=== PATIENT | female | born 1945 | race African-American/Black ===

== ENCOUNTER 2018-02-12 13:17 | Inpatient (IN) | payer OTHER, MEDICARE ==
--- NOTE | 2018-02-12 14:56 | ER Document Report ---
ED Medical Screen (RME) - General Chief Complaint: Lower Abdominal Pain Stated Complaint: VAGINAL BLEEDING Time Seen by Provider: 02/12/18 14:55 Mode of Arrival: Ambulatory Information source: Patient Notes: three days of rectal and vaginal bleeding. no blood thinners. TRAVEL OUTSIDE OF THE [place] IN LAST 30 DAYS: No - Related Data Allergies/Adverse Reactions: shellfish derived Allergy (Verified 02/12/18 13:24) Past Medical History - Social History Chew tobacco use (# tins/day): No Frequency of alcohol use: None Drug Abuse: None Pulmonary Medical History: Reports: Hx Asthma Renal/ Medical History: Denies: Hx Peritoneal Dialysis Musculoskeltal Medical History: Reports Hx Arthritis
--- NOTE | 2018-02-12 16:31 | ER Document Report ---
ED GI/ - General Mode of Arrival: Ambulatory Information source: Patient TRAVEL OUTSIDE OF THE [place] IN LAST 30 DAYS: No <ABIMBOLA VARGAS - Last Filed: 02/12/18 17:50> <LICHA HUA - Last Filed: 02/15/18 09:29> - General Chief Complaint: Lower Abdominal Pain Stated Complaint: VAGINAL BLEEDING Time Seen by Provider: 02/12/18 14:55 Notes: Patient is a morbidly obese 72-year-old female who presents to the emergency department today with complaints of bleeding "out of her rectum or her vagina" for the last three days. Patient states that she first noticed this when having a bowel movement three days ago. Patient states she has not noticed this blood when urinating. Patient describes this blood as dark red in color. Patient mentions associated abdominal pain and lower back pain. Patient states she has not been taking her "fluid pills because she was afraid she might not be able to keep them down" however the patient has not vomited. Patient has never had a colonoscopy in the past, states her PCP is in [place] where she is visiting from. Patient denies any recent weight gain, weight loss, cough , or congestion. (ABIMBOLA VARGAS) - Related Data Allergies/Adverse Reactions: shellfish derived Allergy (Severe, Verified 02/12/18 20:16) Shortness of Breath Past Medical History - General Information source: Patient - Social History Smoking Status: Unknown if Ever Smoked Cigarette use (# per day): No Chew tobacco use (# tins/day): No Frequency of alcohol use: None Drug Abuse: None Lives with: Family Family History: Reviewed & Not Pertinent Patient has suicidal ideation: No Patient has homicidal ideation: No Pulmonary Medical History: Reports: Hx Asthma Musculoskeltal Medical History: Reports Hx Arthritis Surgical Hx: Negative <ABIMBOLA VARGAS - Last Filed: 02/12/18 17:50> Review of Systems - Review of Systems Constitutional: denies: Weight gain, Weight loss EENT: denies: Nose congestion Cardiovascular: No symptoms reported Respiratory: denies: Cough Gastrointestinal: See HPI, Abdominal pain, Rectal bleeding Genitourinary: No symptoms reported Female Genitourinary: No symptoms reported Musculoskeletal: See HPI, Back pain Skin: No symptoms reported Hematologic/Lymphatic: No symptoms reported Neurological/Psychological: No symptoms reported -: Yes All other systems reviewed and negative <ABIMBOLA VARGAS - Last Filed: 02/12/18 17:50> Physical Exam <ABIMBOLA VARGAS - Last Filed: 02/12/18 17:50> <LICHA HUA - Last Filed: 02/15/18 09:29> - Vital signs Vitals: Temp Pulse Resp BP Pulse Ox 98.1 F 90 16 147/64 H 98 02/12/18 13:29 02/12/18 13:29 02/12/18 13:29 02/12/18 13:29 02/12/18 13:29 - Notes Notes: Physical Exam: General: Alert, morbidly obese. HEENT: Normocephalic. Atraumatic. PERRL. Extraocular movements intact. Oropharynx clear. Pale conjunctiva bilaterally. Neck: Supple. Non-tender. Respiratory: No respiratory distress. Clear and equal breath sounds bilaterally. Cardiovascular: Regular rate and rhythm. Abdominal: Normal Inspection. Non-tender. No distension. Normal Bowel Sounds. Rectal: No anal fissures. Gross blood on digital rectal exam. Large amounts of blood with clots in bedside commode. Back: Non-tender. No deformity or step off. Extremities: Moves all four extremities. Upper extremities: Normal inspection. Normal ROM. Lower extremities: See skin exam. No edema. Normal ROM. Neurological: Normal cognition. AAOx4. Normal speech. Psychological: Normal affect. Normal Mood. Skin: Stasis dermatitis to bilateral lower extremities. Warm. Dry. Normal color. (ABIMBOLA VARGAS) Course - Laboratory Result Diagrams: 02/12/18 16:49 02/12/18 16:49 <ABIMBOLA VARGAS - Last Filed: 02/12/18 17:50> - Laboratory Result Diagrams: 02/15/18 08:21 02/15/18 05:29 <LICHA HUA - Last Filed: 02/15/18 09:29> - Re-evaluation Re-evalutation: 02/12/18 19:14 Patient will be admitted for GI bleeding. Patient's vitals are stable and Dr. Avery is consulted. He will scope her tomorrow will be admitted to hospitalist for medical management (LICHA HUA) - Vital Signs Vital signs: Temp Pulse Resp BP Pulse Ox 99.2 F 88 18 103/44 L 98 02/15/18 09:26 02/15/18 09:26 02/15/18 09:26 02/15/18 09:26 02/15/18 09:26 - Laboratory Laboratory results interpreted by me: 02/12/18 02/12/18 02/12/18 16:49 16:49 16:49 WBC 10.6 H RBC 3.36 L Hgb 9.6 L Hct 29.9 L MCHC 31.9 L RDW 15.1 H Plt Count 148 L Chloride 109 H Anion Gap 4 L Albumin 3.2 L Urine Protein Urine Ketones Urine Blood Crossmatch See Detail 02/12/18 17:16 WBC RBC Hgb Hct MCHC RDW Plt Count Chloride Anion Gap Albumin Urine Protein 30 H Urine Ketones TRACE H Urine Blood LARGE H Crossmatch Discharge <ABIMBOLA VARGAS - Last Filed: 02/12/18 17:50> - Discharge Admitting Provider: [facility] Admitted: Telemetry <LICHA HUA - Last Filed: 02/15/18 09:29> - Discharge Clinical Impression: Rectal bleeding Condition: Good Disposition: ADMITTED INPATIENT Scribe Attestation: 02/15/18 09:29 I personally performed the services described in the documentation, reviewed and edited the documentation which was dictated to the scribe in my presence, and it accurately records my words and actions. (LICHA HUA) Scribe Documentation - Scribe Written by Doryibe:: James Baltazar, 02/12/2018 1801 acting as scribe for :: Kishor <ABIMBOLA VARGAS - Last Filed: 02/12/18 17:50>
[2018-02-12] MEDS ORDERED: NORMAL SALINE 1000 ML 500 ML IV ONE (16:37)
[2018-02-12 17:07] LABS: ABSOLUTE BASOPHILS # (AUTO) 0.1 10^3/uL (0.0-0.2); ABSOLUTE EOSINOPHILS # (AUTO) 0.5 10^3/uL (0.0-0.6); ABSOLUTE LYMPHOCYTES (AUTO) 2.7 10^3/uL (0.5-4.7); ABSOLUTE MONOCYTES (AUTO) 0.7 10^3/uL (0.1-1.4); ABSOLUTE NEUT (AUTO) 6.6 10^3/uL (1.7-8.2); BASOPHILS % (AUTO) 0.8 % (0-2); EOSINOPHILS % (AUTO) 5.1 % (0-6); HEMATOCRIT 29.9 % (36.0-47.0); HEMOGLOBIN 9.6 g/dL (12.0-15.5); LYMPHOCYTES % (AUTO) 25.4 % (13-45); MEAN CORPUSCULAR HEMOGLOBIN 28.4 pg (27.0-33.4); MEAN CORPUSCULAR HGB CONC 31.9 g/dL (32.0-36.0); MEAN CORPUSCULAR VOLUME 89 fl (80-97); MONOCYTES % (AUTO) 6.6 % (3-13); PLATELET COUNT 148 10^3/uL (150-450); RED BLOOD COUNT 3.36 10^6/uL (3.72-5.28); RED CELL DISTRIBUTION WIDTH 15.1 % (11.5-14.0); SEGMENTED NEUTROPHILS % (AUTO) 62.1 % (42-78); TOTAL CELLS COUNTED % (AUTO) 100 %; WHITE BLOOD COUNT 10.6 10^3/uL (4.0-10.5)
[2018-02-12 17:27] LABS: ALANINE AMINOTRANSFERASE 21 U/L (9-52); ALBUMIN 3.2 g/dL (3.5-5.0); ALKALINE PHOSPHATASE 48 U/L (38-126); ASPARTATE AMINO TRANSFERASE 22 U/L (14-36); BILIRUBIN,DIRECT 0.4 mg/dL (0.0-0.4); BILIRUBIN,TOTAL 0.6 mg/dL (0.2-1.3); BLOOD UREA NITROGEN 16 mg/dL (7-20); CALCIUM 9.2 mg/dL (8.4-10.2); CARBON DIOXIDE 29 mmol/L (22-30); GLUCOSE 106 mg/dL (75-110); POTASSIUM 4.4 mmol/L (3.6-5.0); TOTAL PROTEIN 6.9 g/dL (6.3-8.2)
[2018-02-12 17:32] LABS: CHLORIDE 109 mmol/L (98-107); SODIUM 142.4 mmol/L (137-145)
[2018-02-12 17:33] LABS: ANION GAP 4 (5-19)
[2018-02-12 18:02] LABS: APPEARANCE,URINE SLIGHTLY-CLOUDY; BILIRUBIN,URINE NEGATIVE (NEGATIVE); COLOR,URINE YELLOW; GLUCOSE, URINE NEGATIVE (NEGATIVE); KETONES,URINE TRACE mg/dL (NEGATIVE); LEUKOCYTE ESTERASE,URINE NEGATIVE (NEGATIVE); NITRITE,URINE NEGATIVE (NEGATIVE); PROTEIN,URINE 30 mg/dL (NEGATIVE); URINE SPECIFIC GRAVITY 1.028; UROBILINOGEN,URINE NEGATIVE mg/dL (<2.0)
--- NOTE | 2018-02-12 18:42 | RADIOLOGY REPORT (SQ) ---
EXAM DESCRIPTION: CT ABD/PELVIS WITH IV ONLY COMPLETED DATE/TIME: 02/12/2018 6:24 pm REASON FOR STUDY: rectal bleeding 3x days COMPARISON: None. TECHNIQUE: CT scan of the abdomen and pelvis performed using helical scanning technique with dynamic intravenous contrast injection. No oral contrast. Images reviewed with lung, soft tissue, and bone windows. Reconstructed coronal and sagittal MPR images reviewed. Delayed images for evaluation of the urinary system also acquired. All images stored on PACS. All CT scanners at this facility use dose modulation, iterative reconstruction, and/or weight based d osing when appropriate to reduce radiation dose to as low as reasonably achievable (ALARA). [facility]: Dose Right [facility]: CareDose [facility]: Dose Right [facility]: Teradose 4D [facility]: Vericept CONTRAST TYPE AND DOSE: 79 mL Isovue 370 RENAL FUNCTION: Creatinine 0.65 RADIATION DOSE: CT Rad equipment meets quality standard of care and radiation dose reduction techniq ues were employed. CTDIvol: 21.1 mGy. DLP: 2045 mGy-cm.. LIMITATIONS: Study is limited due to the patient's body habitus FINDINGS: LOWER CHEST: No significant findings. No nodules or infiltrates. LIVER: Normal size. No masses. No dilated ducts. SPLEEN: Normal size. No focal lesions. PANCREAS: No masses. No significant calcifications. No adjacent inflammation or peripancreatic fluid collections. Pancreatic duct not dilated. GALLBLADDER: Status post cholecystectomy ADRENAL GLANDS: No significant masses or asymmetry. RIGHT KIDNEY AND URETER: No solid masses. No significant calcifications. No hydronephrosis or hyd roureter. LEFT KIDNEY AND URETER: No solid masses. No significant calcifications. No hydronephrosis or hydr oureter. AORTA AND VESSELS: No aneurysm. No dissection. Renal arteries, SMA, celiac without stenosis. RETROPERITONEUM: No retroperitoneal adenopathy, hemorrhage or masses. BOWEL AND PERITONEAL CAVITY: No masses or inflammatory changes. No free fluid or peritoneal masses. A few scattered diverticula are identified in the distal descending colon and sigmoid colon. APPENDIX: Not identified PELVIS: No mass. No free fluid. Normal bladder. There is some prominence of the uterus. Small amou nt of air is identified in at the level of the cervix which may be within the endocervical canal. ABDOMINAL WALL: No masses. No hernias. BONES: No significant or acute findings. OTHER: No other significant finding. IMPRESSION: NO SIGNIFICANT OR ACUTE FINDING IN THE ABDOMEN OR PELVIS ON CT SCAN WITH IV CONTRAST. TECHNICAL DOCUMENTATION: JOB ID: [id number] Quality ID # [id number]: Final reports with documentation of one or more dose reduction techniques (e.g., Au tomated exposure control, adjustment of the mA and/or kV according to patient size, use of iterative reconstruction technique) 2010 [employer]- All Rights Reserved Reading location - IP/workstation name: [email or web address]
[2018-02-12 19:05] LABS: INTERNATIONAL RATION (INR) 1.04; PROTHROMBIN TIME 14.3 SEC (11.4-15.4)
[2018-02-12 19:06] LABS: PARTIAL THROMBOPLASTIN TIME 32.1 SEC (23.5-35.8)
[2018-02-12] MEDS ORDERED: ALBUTEROL SULFATE 0.083% NEB 2.5 MG/3 ML AMPUL NEB PRN (19:21)
[2018-02-12] MEDS ORDERED: ACETAMINOPHEN 325 MG TABLET PO PRN (19:21)
[2018-02-12] MEDS ORDERED: PROMETHAZINE HCL INJ 25 MG/1 ML VIAL IV PRN (19:21)
[2018-02-12] MEDS ORDERED: FENTANYL CITRATE INJ/PF 100 MCG/2 ML AMPUL IV PRN (19:59)
[2018-02-12] MEDS ORDERED: PANTOPRAZOLE SODIUM 40 MG VIAL IV ONE (20:00)
[2018-02-12] MEDS ORDERED: PEG 3350/NA SULF,BICARB,CL/KCL 4000 ML PO ONE (20:30)
[2018-02-12] MEDS: NORMAL SALINE 1000 ML 1,000 ML IV PRN (20:31)
--- NOTE | 2018-02-12 20:31 | PDOC H&P ---
History of Present Illness Patient complains of: Melena 3 episodes today. History of Present Illness: BHARAT MATHEW is a 72 year old morbidly obese female with no medical history since she does not follow with the primary physician was admitted with above- mentioned complaints. The patient was not very forthcoming with information so some of the history was obtained from her daughter at bedside. She resides in [place]. Per her daughter, the patient mentioned to her that she had some bleeding when she had a bowel movement about 3 days ago. And around noon today, she had dark blood per rectum per her son. The patient herself was not sure if she had any bright red blood since she said that she did not look. She had 3 more episodes while in the ED with the last time being around 4:30 PM. It was melanic stool. The patient denied any chest pain, shortness of breath, abdominal pain or diarrhea but she said that she is constipated at times. She also felt nauseous but she did not vomit. She noticed that her urine output has been low today. She felt lightheaded when she was in CAT scan. The patient denied any fever but complained of chills and lower back pain. She is able to ambulate using a cane. She said that she took 2 Aleve nightly for the last 3 days for her arthritis pain. In the ED, her temperature was 98.1, heart rate 90, respiratory rate 16, blood pressure 147/64 with oxygen saturation of 98% on room air. Her hemoglobin was 9.6 and INR was 1.0. UA negative. An abdominal CAT scan was done which was unremarkable except for scattered diverticuli in the distal descending and sigmoid colon. Past Medical History Medical History: Other - According to the patient and based on previous records. Cardiac Medical History: Reports: Other - bilateral lymphadema. Pulmonary Medical History: Reports: Asthma Musculoskeltal Medical History: Reports: Arthritis Past Surgical History Past Surgical History: Reports: None Social History Lives with: Family Smoking Status: Never Smoker Frequency of Alcohol Use: None Hx Recreational Drug Use: No - Advance Directive Resuscitation Status: Full Code Family History Family History: Reviewed & Not Pertinent Parental Family History Reviewed: Yes - No cardiac disease or diabetes in the family per patient. Children Family History Reviewed: No Sibling(s) Family History Reviewed.: Yes Medication/Allergy Allergies/Adverse Reactions: shellfish derived Allergy (Severe, Verified 02/12/18 20:16) Shortness of Breath Review of Systems ROS unobtainable: Other - Pertinent positives and negatives as detailed in the HPI. Physical Exam Vital Signs: Temp Pulse Resp BP Pulse Ox 97.5 F 84 18 108/66 100 02/12/18 19:19 02/12/18 19:19 02/12/18 19:19 02/12/18 19:19 02/12/18 19:19 Intake & Output 02/11/18 02/12/18 02/13/18 06:59 06:59 06:59 Weight 135.4 kg General appearance: PRESENT: no acute distress, morbidly obese Head exam: PRESENT: atraumatic, normocephalic Eye exam: PRESENT: conjunctiva pink, PERRLA. ABSENT: scleral icterus Mouth exam: PRESENT: moist, neck supple Neck exam: PRESENT: full ROM. ABSENT: JVD Respiratory exam: PRESENT: decreased breath sounds. ABSENT: rales, rhonchi, wheezes Cardiovascular exam: PRESENT: RRR, +S1, +S2 Pulses: PRESENT: normal dorsalis pedis pul GI/Abdominal exam: PRESENT: normal bowel sounds, soft. ABSENT: distended, rebound, tenderness Rectal exam: PRESENT: deferred Extremities exam: ABSENT: pedal edema Musculoskeletal exam: PRESENT: other - unable to move lower extremities since heavy. Neurological exam: PRESENT: alert, altered, awake, motor sensory deficit - motor 2+/5 lower extremities since legs "heavy". Skin exam: PRESENT: dry, warm. ABSENT: erythema, rash Results Laboratory Results: 02/12/18 16:49 02/12/18 16:49 02/12/18 02/12/18 02/12/18 16:49 16:49 16:49 WBC 10.6 H RBC 3.36 L Hgb 9.6 L Hct 29.9 L MCV 89 MCH 28.4 MCHC 31.9 L RDW 15.1 H Plt Count 148 L Seg Neutrophils % 62.1 Lymphocytes % 25.4 Monocytes % 6.6 Eosinophils % 5.1 Basophils % 0.8 Absolute Neutrophils 6.6 Absolute Lymphocytes 2.7 Absolute Monocytes 0.7 Absolute Eosinophils 0.5 Absolute Basophils 0.1 Sodium 142.4 Potassium 4.4 Chloride 109 H Carbon Dioxide 29 Anion Gap 4 L BUN 16 Creatinine 0.65 Est GFR ( Amer) > 60 Est GFR (Non-Af Amer) > 60 Glucose 106 Calcium 9.2 Total Bilirubin 0.6 AST 22 ALT 21 Alkaline Phosphatase 48 Total Protein 6.9 Albumin 3.2 L Urine Color Urine Appearance Urine pH Ur Specific [place] Urine Protein Urine Glucose (UA) Urine Ketones Urine Blood Urine Nitrite Ur Leukocyte Esterase Urine WBC (Auto) Urine RBC (Auto) Blood Type AB POSITIVE Antibody Screen NEGATIVE 02/12/18 17:16 WBC RBC Hgb Hct MCV MCH MCHC RDW Plt Count Seg Neutrophils % Lymphocytes % Monocytes % Eosinophils % Basophils % Absolute Neutrophils Absolute Lymphocytes Absolute Monocytes Absolute Eosinophils Absolute Basophils Sodium Potassium Chloride Carbon Dioxide Anion Gap BUN Creatinine Est GFR ( Amer) Est GFR (Non-Af Amer) Glucose Calcium Total Bilirubin AST ALT Alkaline Phosphatase Total Protein Albumin Urine Color YELLOW Urine Appearance SLIGHTLY-CLOUDY Urine pH 5.0 Ur Specific [place] 1.028 Urine Protein 30 H Urine Glucose (UA) NEGATIVE Urine Ketones TRACE H Urine Blood LARGE H Urine Nitrite NEGATIVE Ur Leukocyte Esterase NEGATIVE Urine WBC (Auto) 8 Urine RBC (Auto) >182 Blood Type Antibody Screen EKG Comments: none. Impressions: Abdomen/Pelvis CT 02/12/18 16:36 IMPRESSION: NO SIGNIFICANT OR ACUTE FINDING IN THE ABDOMEN OR PELVIS ON CT SCAN WITH IV CONTRAST. Assessment & Plan - Diagnosis (1) GI bleed Qualifiers: GI bleed type/associated pathology: unspecified gastrointestinal hemorrhage type Qualified Code(s): K92.2 - Gastrointestinal hemorrhage, unspecified Is this a current diagnosis for this admission?: Yes Plan: Possibly upper versus lower GI bleed (the patient was not very clear whether she had any bright red blood per rectum). CAT scan abdomen/pelvis reviewed. We will keep n.p.o., IV fluids and start 40 mg IV Protonix twice a day. We will monitor H&H closely and transfuse as needed. Surgery was consulted by the ED physician for EGD and possible colonoscopy in a.m. - Time Time Spent: 50 to 70 Minutes Anticipated discharge: Home
--- NOTE | 2018-02-12 20:39 | CONSULTATION REPORT E ---
Consultation Report NAME: BHARAT MATHEW : 1945 AGE: 72Y DATE: 02/12/2018 ED17 A TO: CHAS CURRAN M.D. FROM: MORENA MORGAN M.D. Requesting Physician Patient is seen at the request of Emergency Department. CHIEF COMPLAINT: Rectal bleeding. HISTORY OF PRESENT ILLNESS: Patient is a 72-year-old female, poor historian, recently from [place], visiting [place], [place] while attending a wedding. She comes to the Emergency Department complaining of a 3-day history of rectal bleeding, recently thought to be coming from her vagina but confirmed to be her rectum. Blood was dark red. Patient denies a history of trauma, previous episodes. She has never had a colonoscopy. She was seen in the Emergency Department after being brought by ground rescue where she was hemodynamically stable. She had hemoglobin of 9.6. She underwent CT scan of the abdomen and pelvis where she was found to have evidence of diverticulosis only. The CT scan was performed with IV contrast only. Medicine was consulted and have advised admission with surgery consulting for endoscopic purposes. ALLERGIES: SHELLFISH. PAST MEDICAL HISTORY: Unknown; lower extremity edema, lymphedema, asthma, and arthritis. PAST SURGICAL HISTORY: Patient denies. REVIEW OF SYSTEMS: CONSTITUTIONAL: Patient denies. GASTROINTESTINAL: As per HPI. GENITOURINARY: Patient denies. MUSCULOSKELETAL: Lower extremity edema. SOCIAL HISTORY: Noncontributory. FAMILY HISTORY: Noncontributory. SUBSTANCE USE: The patient does not smoke. PHYSICAL EXAMINATION: Patient examined in the Emergency Department. She is in no acute distress. There is a strong stench in the room, a combination of a GI bleed and biological body smell. PSYCHIATRICALLY: Awake, alert and oriented x4. NEUROLOGIC: Grossly intact in the upper and lower extremities. HEENT: Poor dentition. LUNGS:CTA. HEART: Without murmur or gallop. ABDOMEN: Shows no peritoneal signs. No rigidity. No scars. No hernias. RECTAL: Exam performed by staff. Gross blood. No mass by report; rectal exam not repeated by surgeon. EXTREMITIES: Upper and lower extremities: No gross deformities. Lower extremities with evidence of +2 edema. LABORATORY: Profile shows a white blood cell count of 10,600; hemoglobin 9.6; platelets of 148. Electrolytes essentially within normal limits. IMPRESSION: 1. Acute GI bleed superimposed on chronic anemia; possibly related to chronic disease associated with thrombocytopenia. 2. Need for screening now diagnostic colonoscopy. 3. Obesity. 4. Hypertension. 5. Lymphedema, chronic. RECOMMENDATIONS: Patient needs admission, close monitoring, fluid support, kept n.p.o.; coagulant normal. Hemoglobin should be repeated in 12 hours; patient may require blood transfusion. Suggest starting bowel prep and preparing patient for both upper and lower endoscopy tomorrow pending patient's hemodynamic stability. TOTAL TIME: Thirty minutes. DICTATING PHYSICIAN: CHAS CURRAN M.D. [id number] PHY#: [id number] ID: [id number] JOB#: [id number] ACCT: [id number] cc:CHAS CURRAN M.D. > MTDD
[2018-02-12] MEDS ORDERED: FENTANYL CITRATE INJ/PF 100 MCG/2 ML AMPUL IV ONE (20:45)
[2018-02-12] MEDS ORDERED: INFLUENZA ADLT QUAD (36MOS+) 2017-18 VAC 0.5 ML SYR IM PRN (23:15)
[2018-02-13] MEDS: PANTOPRAZOLE SODIUM 40 MG VIAL IV SCH ×3 (00:03→22:02)
[2018-02-13] MEDS: NORMAL SALINE 1000 ML 1,000 ML IV PRN (00:04)
[2018-02-13 04:43] LABS: HEMATOCRIT 22.6 % (36.0-47.0); MEAN CORPUSCULAR HEMOGLOBIN 28.2 pg (27.0-33.4); MEAN CORPUSCULAR VOLUME 88 fl (80-97); PLATELET COUNT 106 10^3/uL (150-450); RED BLOOD COUNT 2.56 10^6/uL (3.72-5.28); RED CELL DISTRIBUTION WIDTH 14.3 % (11.5-14.0); WHITE BLOOD COUNT 10.1 10^3/uL (4.0-10.5)
[2018-02-13 04:50] LABS: HEMOGLOBIN 7.2 g/dL (12.0-15.5)
[2018-02-13 05:01] LABS: BLOOD UREA NITROGEN 14 mg/dL (7-20); CALCIUM 8.3 mg/dL (8.4-10.2); CARBON DIOXIDE 28 mmol/L (22-30); GLUCOSE 88 mg/dL (75-110)
[2018-02-13 05:23] LABS: ANION GAP 5 (5-19); CHLORIDE 111 mmol/L (98-107); POTASSIUM 3.9 mmol/L (3.6-5.0)
[2018-02-13] MEDS ORDERED: FUROSEMIDE INJ/PF 20 MG/2 ML SDV IV PRN (08:05)
[2018-02-13] MEDS ORDERED: NORMAL SALINE 250 ML IV PRN ×2 (08:05)
[2018-02-13] MEDS ORDERED: GLYCOPYRROLATE INJ 0.4 MG/2 ML VIAL ONE (08:48)
[2018-02-13] MEDS ORDERED: ONDANSETRON HCL INJ/PF 4 MG/2 ML SDV ONE (08:48)
[2018-02-13] MEDS ORDERED: NALOXONE HCL INJ/PF 0.4 MG/1 ML SDV ONE (08:48)
[2018-02-13] MEDS ORDERED: GLUCAGON,HUMAN RECOMB 1 MG INJ ONE (08:49)
[2018-02-13] MEDS ORDERED: FLUMAZENIL INJ 0.5 MG/5 ML VIAL ONE (08:49)
[2018-02-13] MEDS ORDERED: EPINEPHRINE INJ 1 MG/10 ML DISP.SYRIN ONE (08:49)
[2018-02-13] MEDS ORDERED: PANTOPRAZOLE SODIUM 40 MG VIAL IV SCH (10:00)
--- NOTE | 2018-02-13 11:43 | PDOC PROGRESS REPORT ---
Subjective Progress Note for:: 02/13/18 Subjective:: Had bowel movement mixed with stool and blood this morning. No abdominal pain. No shortness of breath. No lightheadedness. Reason For Visit: RECTAL BLEED Physical Exam Vital Signs: Temp Pulse Resp BP Pulse Ox 98.5 F 88 16 108/59 L 100 02/13/18 11:10 02/13/18 11:10 02/13/18 11:10 02/13/18 11:10 02/13/18 11:10 Intake & Output 02/12/18 02/13/18 02/14/18 06:59 06:59 06:59 Intake Total 1100 450 Balance 1100 450 Weight 130 kg General appearance: PRESENT: no acute distress, cooperative Respiratory exam: PRESENT: clear to auscultation zaid Cardiovascular exam: PRESENT: RRR GI/Abdominal exam: PRESENT: other - Soft, nondistended, nontender to palpation. Results Laboratory Results: 02/13/18 04:23 02/13/18 04:23 02/13/18 02/13/18 04:23 04:23 WBC 10.1 RBC 2.56 L Hgb 7.2 L D Hct 22.6 L MCV 88 MCH 28.2 MCHC 32.0 RDW 14.3 H Plt Count 106 L Sodium 144.0 Potassium 3.9 Chloride 111 H Carbon Dioxide 28 Anion Gap 5 BUN 14 Creatinine 0.57 Est GFR ( Amer) > 60 Est GFR (Non-Af Amer) > 60 Glucose 88 Calcium 8.3 L Impressions: Abdomen/Pelvis CT 02/12/18 16:36 IMPRESSION: NO SIGNIFICANT OR ACUTE FINDING IN THE ABDOMEN OR PELVIS ON CT SCAN WITH IV CONTRAST. Assessment & Plan - Diagnosis (1) GI bleed Qualifiers: GI bleed type/associated pathology: unspecified gastrointestinal hemorrhage type Qualified Code(s): K92.2 - Gastrointestinal hemorrhage, unspecified Is this a current diagnosis for this admission?: Yes Plan: Of unknown etiology. Bleeding appears to have at least slowed. Patient was unable to complete the bowel prep. Received unit of blood and second unit is on the way. Will proceed with upper and lower endoscopy.
[2018-02-13] MEDS: MIDAZOLAM 2 MG/2 ML INJ ONE ×4 (11:55→12:18)
[2018-02-13] MEDS: FENTANYL CITRATE INJ/PF 100 MCG/2 ML AMPUL ONE ×5 (11:57→12:22)
--- NOTE | 2018-02-13 12:52 | Operative Report ---
Operative Report DATE OF SURGERY: 02/13/18 PREOPERATIVE DIAGNOSIS: Gastrointestinal bleed POSTOPERATIVE DIAGNOSIS: Gastrointestinal bleed, hiatal hernia, left and sigmoid colon diverticulosis. OPERATION: Esophagogastroduodenoscopy. Colonoscopy to beyond the splenic flexure. SURGEON: RODNEY DEVLIN ANESTHESIA: Moderate Sedation TISSUE REMOVED OR ALTERED: None COMPLICATIONS: None ESTIMATED BLOOD LOSS: None INTRAOPERATIVE FINDINGS: Moderate size hiatal hernia but otherwise normal duodenum, stomach and esophagus. Blood colored liquid throughout the colon with some stool debris. But no fresh clot seen. diverticuli seen in the sigmoid and left colon. PROCEDURE: Informed consent was obtained. Patient was brought to the endoscopy suite. IV sedation with Versed and fentanyl was administered. Endoscope was passed via the patient's mouth it was fed down to the second portion of the duodenum. The duodenum appeared to be normal. The stomach mucosa appeared normal. No ulcers no blood was noted in the stomach. Retroflexed view demonstrated moderate size hiatal hernia. Otherwise the stomach and esophagus appeared normal. Patient was repositioned. Digital rectal exam revealed no palpable perianal masses. Endoscope was passed via the patient's anus it was fed beyond the splenic flexure to the transverse colon. There was opaque blood colored fluid throughout the colon but no fresh blood clots. There was solid stool debris as well. Irrigation and aspiration was used to generously throughout the case. Visualization was difficult due to the incomplete bowel prep and the blood colored fluid. Patient was poorly tolerant of the endoscopic procedure. Despite 7 mg of Versed and 200 mcg of fentanyl, I could not get her comfortable. I had minimal resistance during the passage of the scope yet she was intolerant of the scope. Rather than risk airway compromise with too heavy sedation, I aborted the procedure. I did not see a distinct bleeding source in the transverse colon descending colon sigmoid colon and the rectum however there was multiple diverticuli in the descending and the sigmoid colon. I could not get to the right colon and the cecum due to patient intolerance. I will plan to get a tagged RBC scan today. I will reprep her today and will plan a repeat lower endoscopy in the operating room under monitored anesthesia care tomorrow. No source of her bleed identified today on incomplete colonoscopy, however I suspect a source proximal to the transverse colon, possibly right colon or cecal bleed, perhaps even a small bowel source distal to the duodenum.
[2018-02-13] MEDS ORDERED: PEG 3350/NA SULF,BICARB,CL/KCL 4000 ML PO ONE (14:00)
[2018-02-13 16:20] LABS: ABSOLUTE BASOPHILS # (AUTO) 0.1 10^3/uL (0.0-0.2); ABSOLUTE EOSINOPHILS # (AUTO) 0.3 10^3/uL (0.0-0.6); ABSOLUTE LYMPHOCYTES (AUTO) 2.3 10^3/uL (0.5-4.7); ABSOLUTE MONOCYTES (AUTO) 0.7 10^3/uL (0.1-1.4); ABSOLUTE NEUT (AUTO) 7.1 10^3/uL (1.7-8.2); BASOPHILS % (AUTO) 0.7 % (0-2); EOSINOPHILS % (AUTO) 2.9 % (0-6); HEMATOCRIT 27.8 % (36.0-47.0); HEMOGLOBIN 9.2 g/dL (12.0-15.5); MEAN CORPUSCULAR HEMOGLOBIN 28.6 pg (27.0-33.4); MEAN CORPUSCULAR VOLUME 87 fl (80-97); MONOCYTES % (AUTO) 6.4 % (3-13); PLATELET COUNT 111 10^3/uL (150-450); RED BLOOD COUNT 3.21 10^6/uL (3.72-5.28); RED CELL DISTRIBUTION WIDTH 15.9 % (11.5-14.0); TOTAL CELLS COUNTED % (AUTO) 100 %; WHITE BLOOD COUNT 10.5 10^3/uL (4.0-10.5)
[2018-02-13] MEDS ORDERED: TRAMADOL HCL 50 MG TABLET PO PRN (16:21)
--- NOTE | 2018-02-13 16:22 | PDOC PROGRESS REPORT ---
Subjective Progress Note for:: 02/13/18 Subjective:: Patient is a 72-year-old morbidly obese female with no past medical history as she does not follow with a primary care physician who was admitted on 02/12/18 for report of melena 3 episodes. The patient is seen on rounds following return to her room from colonoscopy and EGD by Dr. Alva today. She states that she is feeling hungry at present. She denies weakness, palpitations, chest pain, dyspnea, orthopnea, abdominal pain, nausea and vomiting. She is unable to explain to me the plan for a nuclear med bleeding study to be completed this afternoon and repeat colonoscopy tomorrow as the scope needs to be repeated due to poor prep. She has no new questions or concerns at this time. Reason For Visit: RECTAL BLEED Physical Exam Vital Signs: Temp Pulse Resp BP Pulse Ox 97.9 F 78 16 121/65 100 02/13/18 13:20 02/13/18 14:00 02/13/18 13:20 02/13/18 13:20 02/13/18 13:20 Intake & Output 02/12/18 02/13/18 02/14/18 06:59 06:59 06:59 Intake Total 1100 1350 Balance 1100 1350 Weight 130 kg 130 kg General appearance: PRESENT: no acute distress, cooperative - Pleasant, morbidly obese, well-developed, well-nourished Head exam: PRESENT: atraumatic, normocephalic Eye exam: PRESENT: conjunctiva pink, EOMI, PERRLA. ABSENT: scleral icterus Ear exam: PRESENT: normal external ear exam Mouth exam: PRESENT: moist, tongue midline Neck exam: ABSENT: carotid bruit, JVD, lymphadenopathy, thyromegaly Respiratory exam: PRESENT: clear to auscultation zaid, decreased breath sounds - Bibasilar, symmetrical, unlabored. ABSENT: rales, rhonchi, wheezes Cardiovascular exam: PRESENT: RRR, +S1, +S2. ABSENT: diastolic murmur, rubs, systolic murmur Pulses: PRESENT: normal dorsalis pedis pul Vascular exam: PRESENT: normal capillary refill GI/Abdominal exam: PRESENT: normal bowel sounds, soft. ABSENT: distended, guarding, mass, organolmegaly, rebound, tenderness Rectal exam: PRESENT: deferred, heme (+) stool Extremities exam: PRESENT: full ROM. ABSENT: calf tenderness, clubbing, pedal edema Neurological exam: PRESENT: alert, awake, oriented to person, oriented to place , oriented to time, oriented to situation, CN II-XII grossly intact. ABSENT: motor sensory deficit Psychiatric exam: PRESENT: appropriate affect, normal mood. ABSENT: homicidal ideation, suicidal ideation Skin exam: PRESENT: dry, intact, warm. ABSENT: cyanosis, rash Results Laboratory Results: 02/13/18 04:23 02/13/18 04:23 02/13/18 02/13/18 04:23 04:23 WBC 10.1 RBC 2.56 L Hgb 7.2 L D Hct 22.6 L MCV 88 MCH 28.2 MCHC 32.0 RDW 14.3 H Plt Count 106 L Sodium 144.0 Potassium 3.9 Chloride 111 H Carbon Dioxide 28 Anion Gap 5 BUN 14 Creatinine 0.57 Est GFR ( Amer) > 60 Est GFR (Non-Af Amer) > 60 Glucose 88 Calcium 8.3 L Impressions: Abdomen/Pelvis CT 02/12/18 16:36 IMPRESSION: NO SIGNIFICANT OR ACUTE FINDING IN THE ABDOMEN OR PELVIS ON CT SCAN WITH IV CONTRAST. Assessment & Plan - Diagnosis (1) GI bleed Qualifiers: GI bleed type/associated pathology: unspecified gastrointestinal hemorrhage type Qualified Code(s): K92.2 - Gastrointestinal hemorrhage, unspecified Is this a current diagnosis for this admission?: Yes Plan: The patient was admitted with a report of melena 3 after several days of NSAID use for arthritic pain. No previous history of same. Contrasted CT of abdomen and pelvis: No significant or acute findings in the abdomen or pelvis. EGD by Dr. Alva today demonstrated a moderate sized hiatal hernia but otherwise normal duodenum, stomach, and esophagus. Colonoscopy by Dr. Alva today revealed colored liquid throughout the colon with some stool debris but no fresh clot seen. Diverticuli seen in the sigmoid and left colon. Surgery has been consulted; appreciate Dr. Alva's assistance with this patient. Dr. Alva will get a tagged RBC nuclear bleeding study today. She is to reprep for colonoscopy overnight and a repeat lower colonoscopy with anesthesia tomorrow. IV Protonix 40 mg twice daily. Will monitor Hgb and transfuse as necessary. (2) Acute blood loss anemia Is this a current diagnosis for this admission?: Yes Plan: Secondary to acute GI bleeding. The patient is now post 2 units packed red blood cells. Repeat hemoglobin is pending. We will monitor with serial H&H and transfuse as necessary. Remaining plan as above. (3) Dehydration Is this a current diagnosis for this admission?: Yes Plan: Trace keytones noted in urinalysis. Pt drinking Golytely for bowel prep. Will provide IVF. (4) Arthritis Is this a current diagnosis for this admission?: Yes Plan: Avoid all NSAIDs. Tylenol every 4 hours prn pain. Tramadol for break through pain. (5) Generalized weakness Is this a current diagnosis for this admission?: Yes Plan: Multifactorial secondary to acute blood loss anemia, morbid obesity, and immobility. PT/OT have been consulted. Anticipate need for SNF for short-term rehabilitation upon discharge. Appreciate discharge planners assistance. - Time Time Spent with patient: 25-34 minutes Medications reviewed and adjusted accordingly: Yes Anticipated discharge: Acute Rehab - Inpatient Certification Based on my medical assessment, after consideration of the patient's comorbidities, presenting symptoms, or acuity I expect that the services needed warrant INPATIENT care.: Yes I certify that my determination is in accordance with my understanding of Medicare's requirements for reasonable and necessary INPATIENT services [42 CFR 412.3e].: Yes Medical Necessity: Need Close Monitoring Due to Risk of Patient Decompensation, Need For IV Fluids, Need for Surgery
--- NOTE | 2018-02-13 19:21 | RADIOLOGY REPORT (SQ) ---
EXAM DESCRIPTION: NM GI BLEED SCAN COMPLETED DATE/TIME: 02/13/2018 6:15 pm REASON FOR STUDY: evaluate gi bleed. COMPARISON: None. RADIONUCLIDE AND DOSE: 26.1 millicuries Technetium-labeled red blood cells. The route of agent administration: Intravenous. TECHNIQUE: Serial arterial-phase images acquired for 80 seconds immediately following injection of r adionuclide. Additional 60 images acquired at 60 seconds per image. LIMITATIONS: None. FINDINGS: Flow images without focal areas of abnormal radionuclide location. Serial images show no abnormal accumulation of radionuclide. IMPRESSION: NORMAL RADIONUCLIDE GASTROINTESTINAL BLEEDING STUDY. NO EVIDENCE OF ACTIVE GI BLEEDING DURING THE STUDY. TECHNICAL DOCUMENTATION: JOB ID: [id number] [employer]- All Rights Reserved Reading location - IP/workstation name: [email or web address]
[2018-02-13] MEDS ORDERED: MAGNESIUM CITRATE 296 ML BOTTLE PO ONE (20:30)
[2018-02-13 22:16] LABS: HEMATOCRIT 24.9 % (36.0-47.0); HEMOGLOBIN 8.3 g/dL (12.0-15.5); MEAN CORPUSCULAR HEMOGLOBIN 28.6 pg (27.0-33.4); MEAN CORPUSCULAR HGB CONC 33.4 g/dL (32.0-36.0); MEAN CORPUSCULAR VOLUME 86 fl (80-97); PLATELET COUNT 101 10^3/uL (150-450); RED BLOOD COUNT 2.91 10^6/uL (3.72-5.28); RED CELL DISTRIBUTION WIDTH 15.5 % (11.5-14.0); WHITE BLOOD COUNT 9.7 10^3/uL (4.0-10.5)
[2018-02-14 04:04] LABS: HEMATOCRIT 24.3 % (36.0-47.0); MEAN CORPUSCULAR HEMOGLOBIN 28.3 pg (27.0-33.4); MEAN CORPUSCULAR HGB CONC 32.8 g/dL (32.0-36.0); MEAN CORPUSCULAR VOLUME 87 fl (80-97); PLATELET COUNT 105 10^3/uL (150-450); RED BLOOD COUNT 2.81 10^6/uL (3.72-5.28); RED CELL DISTRIBUTION WIDTH 15.8 % (11.5-14.0); WHITE BLOOD COUNT 9.4 10^3/uL (4.0-10.5)
[2018-02-14 04:15] LABS: BLOOD UREA NITROGEN 10 mg/dL (7-20); CARBON DIOXIDE 29 mmol/L (22-30); GLUCOSE 75 mg/dL (75-110); POTASSIUM 3.5 mmol/L (3.6-5.0)
[2018-02-14 04:21] LABS: ANION GAP 5 (5-19); CHLORIDE 108 mmol/L (98-107); SODIUM 142.1 mmol/L (137-145)
[2018-02-14] MEDS: POTASSI CL 20 MEQ/50 ML RIDER 20 MEQ/50 ML RTUPB IV SCH ×2 (08:11→11:56)
[2018-02-14] MEDS: PANTOPRAZOLE SODIUM 40 MG VIAL IV SCH (10:30)
[2018-02-14 10:43] LABS: ABSOLUTE EOSINOPHILS # (AUTO) 0.3 10^3/uL (0.0-0.6); ABSOLUTE LYMPHOCYTES (AUTO) 2.1 10^3/uL (0.5-4.7); ABSOLUTE MONOCYTES (AUTO) 0.7 10^3/uL (0.1-1.4); BASOPHILS % (AUTO) 0.4 % (0-2); EOSINOPHILS % (AUTO) 2.5 % (0-6); HEMATOCRIT 26.6 % (36.0-47.0); HEMOGLOBIN 8.7 g/dL (12.0-15.5); LYMPHOCYTES % (AUTO) 19.2 % (13-45); MEAN CORPUSCULAR HGB CONC 32.6 g/dL (32.0-36.0); MEAN CORPUSCULAR VOLUME 86 fl (80-97); MONOCYTES % (AUTO) 6.1 % (3-13); PLATELET COUNT 110 10^3/uL (150-450); RED CELL DISTRIBUTION WIDTH 15.8 % (11.5-14.0); SEGMENTED NEUTROPHILS % (AUTO) 71.8 % (42-78); TOTAL CELLS COUNTED % (AUTO) 100 %; WHITE BLOOD COUNT 11.2 10^3/uL (4.0-10.5)
[2018-02-14] MEDS: NORMAL SALINE 1000 ML 1,000 ML IV PRN (12:18)
--- NOTE | 2018-02-14 14:14 | PDOC PROGRESS REPORT ---
Subjective Progress Note for:: 02/14/18 Subjective:: Patient is a 72-year-old morbidly obese female with no past medical history as she does not follow with a primary care physician who was admitted on 02/12/18 for report of melena 3 episodes. The patient is seen on morning rounds with her family members present. She is found resting comfortably in bed on room air. She does not remember speaking to me yesterday; the patient was seen shortly after returning from a colonoscopy. She denies chest pain, dyspnea, abdominal pain, nausea vomiting, diarrhea, further episodes of melena. We reviewed the events of yesterday; EGD demonstrated hiatal hernia, incomplete colonoscopy secondary to poor prep and difficulty with sedation, and a negative nuclear bleeding study. Plan is for repeat colonoscopy by Dr. Alva today. Rounds following return to her room from colonoscopy and EGD by Dr. Alva today. Again, the patient's only complaint is her n.p.o. status. She has no other questions or concerns at this time. Reason For Visit: RECTAL BLEED Physical Exam Vital Signs: Temp Pulse Resp BP Pulse Ox 97.8 F 96 16 127/38 H 100 02/14/18 12:00 02/14/18 12:00 02/14/18 12:00 02/14/18 12:00 02/14/18 12:00 Intake & Output 02/13/18 02/14/18 02/15/18 06:59 06:59 06:59 Intake Total 1100 2750 0 Output Total 3150 960 Balance 1100 -400 -960 Weight 130 kg 130 kg General appearance: PRESENT: no acute distress, morbidly obese, well-developed, well-nourished Head exam: PRESENT: atraumatic, normocephalic Eye exam: PRESENT: conjunctiva pink, EOMI, PERRLA. ABSENT: scleral icterus Ear exam: PRESENT: normal external ear exam Mouth exam: PRESENT: moist, tongue midline Neck exam: ABSENT: carotid bruit, JVD, lymphadenopathy, thyromegaly Respiratory exam: PRESENT: clear to auscultation zaid, decreased breath sounds - Bibasilar secondary to body habitus and poor inspiratory effort, symmetrical, unlabored. ABSENT: rales, rhonchi, wheezes Cardiovascular exam: PRESENT: RRR, +S1, +S2. ABSENT: diastolic murmur, rubs, systolic murmur Pulses: PRESENT: normal dorsalis pedis pul Vascular exam: PRESENT: normal capillary refill GI/Abdominal exam: PRESENT: normal bowel sounds, soft. ABSENT: distended, guarding, mass, organolmegaly, rebound, tenderness Rectal exam: PRESENT: deferred Extremities exam: PRESENT: full ROM. ABSENT: calf tenderness, clubbing, pedal edema Neurological exam: PRESENT: alert, awake, oriented to person, oriented to place , oriented to time, oriented to situation, CN II-XII grossly intact. ABSENT: motor sensory deficit Psychiatric exam: PRESENT: appropriate affect, normal mood. ABSENT: homicidal ideation, suicidal ideation Skin exam: PRESENT: dry, intact, warm. ABSENT: cyanosis, rash Results Laboratory Results: 02/14/18 10:09 02/14/18 03:38 02/13/18 02/13/18 02/14/18 16:08 22:04 03:38 WBC 10.5 9.7 9.4 RBC 3.21 L 2.91 L 2.81 L Hgb 9.2 L 8.3 L 8.0 L Hct 27.8 L 24.9 L 24.3 L MCV 87 86 87 MCH 28.6 28.6 28.3 MCHC 33.0 33.4 32.8 RDW 15.9 H 15.5 H 15.8 H Plt Count 111 L 101 L 105 L Seg Neutrophils % 68.0 Lymphocytes % 22.0 Monocytes % 6.4 Eosinophils % 2.9 Basophils % 0.7 Absolute Neutrophils 7.1 Absolute Lymphocytes 2.3 Absolute Monocytes 0.7 Absolute Eosinophils 0.3 Absolute Basophils 0.1 Sodium Potassium Chloride Carbon Dioxide Anion Gap BUN Creatinine Est GFR ( Amer) Est GFR (Non-Af Amer) Glucose Calcium 02/14/18 02/14/18 03:38 10:09 WBC 11.2 H RBC 3.10 L Hgb 8.7 L Hct 26.6 L MCV 86 MCH 28.0 MCHC 32.6 RDW 15.8 H Plt Count 110 L Seg Neutrophils % 71.8 Lymphocytes % 19.2 Monocytes % 6.1 Eosinophils % 2.5 Basophils % 0.4 Absolute Neutrophils 8.0 Absolute Lymphocytes 2.1 Absolute Monocytes 0.7 Absolute Eosinophils 0.3 Absolute Basophils 0.0 Sodium 142.1 Potassium 3.5 L Chloride 108 H Carbon Dioxide 29 Anion Gap 5 BUN 10 Creatinine 0.60 Est GFR ( Amer) > 60 Est GFR (Non-Af Amer) > 60 Glucose 75 Calcium 8.0 L Impressions: Abdomen/Pelvis CT 02/12/18 16:36 IMPRESSION: NO SIGNIFICANT OR ACUTE FINDING IN THE ABDOMEN OR PELVIS ON CT SCAN WITH IV CONTRAST. GI Bleed Scan Nuclear Medicine 02/13/18 00:00 IMPRESSION: NORMAL RADIONUCLIDE GASTROINTESTINAL BLEEDING STUDY. NO EVIDENCE OF ACTIVE GI BLEEDING DURING THE STUDY. Assessment & Plan - Diagnosis (1) GI bleed Qualifiers: GI bleed type/associated pathology: unspecified gastrointestinal hemorrhage type Qualified Code(s): K92.2 - Gastrointestinal hemorrhage, unspecified Is this a current diagnosis for this admission?: Yes Plan: The patient was admitted with a report of melena 3 after several days of NSAID use for arthritic pain. No previous history of same. Contrasted CT of abdomen and pelvis: No significant or acute findings in the abdomen or pelvis. EGD by Dr. Alva today demonstrated a moderate sized hiatal hernia but otherwise normal duodenum, stomach, and esophagus. Nuclear bleeding scan: no evidence of bleeding. Repeat colonoscopy planned for today. Surgery has been consulted; appreciate Dr. Alva's assistance with this patient. IV Protonix 40 mg twice daily. Will monitor Hgb and transfuse as necessary; hemoglobin currently appears stable at 8.7 following 2 units packed red blood cells transfused yesterday. (2) Acute blood loss anemia Is this a current diagnosis for this admission?: Yes Plan: Secondary to acute GI bleeding. The patient is now post 2 units packed red blood cells. Hemoglobin appears to be stable at 8.7. We will monitor with serial H&H and transfuse as necessary. Remaining plan as above. (3) Dehydration Is this a current diagnosis for this admission?: Yes Plan: Resolved; continue IV maintenance fluids while n.p.o. (4) Arthritis Is this a current diagnosis for this admission?: Yes Plan: Avoid all NSAIDs. Tylenol every 4 hours prn pain. Tramadol for break through pain. (5) Generalized weakness Is this a current diagnosis for this admission?: Yes Plan: Multifactorial secondary to acute blood loss anemia, morbid obesity, and immobility. PT/OT have been consulted. Anticipate need for SNF for short-term rehabilitation upon discharge. Appreciate discharge planners assistance. - Time Time Spent with patient: 25-34 minutes Medications reviewed and adjusted accordingly: Yes Anticipated discharge: Acute Rehab Within: within 48 hours - Inpatient Certification Based on my medical assessment, after consideration of the patient's comorbidities, presenting symptoms, or acuity I expect that the services needed warrant INPATIENT care.: Yes
--- NOTE | 2018-02-14 23:00 | PDOC PROGRESS REPORT ---
Subjective Progress Note for:: 02/14/18 Subjective:: Denies any abdominal pains or N/V Just had a BM with clots likely old blood since her H/H improved from yesterday Reason For Visit: RECTAL BLEED Physical Exam Vital Signs: Temp Pulse Resp BP Pulse Ox 99.0 F 102 H 20 130/41 H 100 02/14/18 19:35 02/14/18 19:35 02/14/18 19:35 02/14/18 19:35 02/14/18 19:35 Intake & Output 02/13/18 02/14/18 02/15/18 06:59 06:59 06:59 Intake Total 1100 2750 700 Output Total 3150 1160 Balance 1100 -400 -460 Weight 130 kg 130 kg Exam: Abd is soft and nontender Results Laboratory Results: 02/14/18 10:09 02/14/18 03:38 02/14/18 02/14/18 02/14/18 03:38 03:38 10:09 WBC 9.4 11.2 H RBC 2.81 L 3.10 L Hgb 8.0 L 8.7 L Hct 24.3 L 26.6 L MCV 87 86 MCH 28.3 28.0 MCHC 32.8 32.6 RDW 15.8 H 15.8 H Plt Count 105 L 110 L Seg Neutrophils % 71.8 Lymphocytes % 19.2 Monocytes % 6.1 Eosinophils % 2.5 Basophils % 0.4 Absolute Neutrophils 8.0 Absolute Lymphocytes 2.1 Absolute Monocytes 0.7 Absolute Eosinophils 0.3 Absolute Basophils 0.0 Sodium 142.1 Potassium 3.5 L Chloride 108 H Carbon Dioxide 29 Anion Gap 5 BUN 10 Creatinine 0.60 Est GFR ( Amer) > 60 Est GFR (Non-Af Amer) > 60 Glucose 75 Calcium 8.0 L Impressions: Abdomen/Pelvis CT 02/12/18 16:36 IMPRESSION: NO SIGNIFICANT OR ACUTE FINDING IN THE ABDOMEN OR PELVIS ON CT SCAN WITH IV CONTRAST. GI Bleed Scan Nuclear Medicine 02/13/18 00:00 IMPRESSION: NORMAL RADIONUCLIDE GASTROINTESTINAL BLEEDING STUDY. NO EVIDENCE OF ACTIVE GI BLEEDING DURING THE STUDY. Assessment & Plan - Time Time Spent with patient: 15-24 minutes - Plan Summary Plan Summary: For colonoscopy tomorrow. Will ask Dr Rosen or Dr Rawls. Ok to have clears then NPO after midnite Colonoscopy may need to be done in the OR because pt was uncomfortable yesterday 's colonoscopy despite a lot of sedation. Continue follow up CBC Continue hydration
[2018-02-15] MEDS: PANTOPRAZOLE SODIUM 40 MG VIAL IV SCH ×2 (00:24→13:29)
[2018-02-15 06:18] LABS: HEMATOCRIT 21.4 % (36.0-47.0); MEAN CORPUSCULAR HEMOGLOBIN 28.6 pg (27.0-33.4); MEAN CORPUSCULAR VOLUME 87 fl (80-97); PLATELET COUNT 107 10^3/uL (150-450); RED BLOOD COUNT 2.47 10^6/uL (3.72-5.28); RED CELL DISTRIBUTION WIDTH 16.1 % (11.5-14.0); WHITE BLOOD COUNT 8.6 10^3/uL (4.0-10.5)
[2018-02-15 06:32] LABS: BLOOD UREA NITROGEN 7 mg/dL (7-20); CALCIUM 8.1 mg/dL (8.4-10.2); CHLORIDE 109 mmol/L (98-107); GLUCOSE 78 mg/dL (75-110); POTASSIUM 3.5 mmol/L (3.6-5.0)
[2018-02-15 06:38] LABS: CARBON DIOXIDE 28 mmol/L (22-30); SODIUM 138.9 mmol/L (137-145)
[2018-02-15 06:40] LABS: ANION GAP 2 (5-19); HEMOGLOBIN 7.1 g/dL (12.0-15.5)
[2018-02-15] MEDS ORDERED: NORMAL SALINE 250 ML IV PRN (08:35)
[2018-02-15] MEDS ORDERED: FUROSEMIDE INJ/PF 20 MG/2 ML SDV IV PRN (08:35)
[2018-02-15 08:47] LABS: HEMATOCRIT 22.2 % (36.0-47.0); MEAN CORPUSCULAR HEMOGLOBIN 28.3 pg (27.0-33.4); MEAN CORPUSCULAR HGB CONC 32.8 g/dL (32.0-36.0); MEAN CORPUSCULAR VOLUME 86 fl (80-97); PLATELET COUNT 115 10^3/uL (150-450); RED BLOOD COUNT 2.57 10^6/uL (3.72-5.28); RED CELL DISTRIBUTION WIDTH 15.5 % (11.5-14.0); WHITE BLOOD COUNT 8.7 10^3/uL (4.0-10.5)
[2018-02-15 08:49] LABS: HEMOGLOBIN 7.3 g/dL (12.0-15.5)
[2018-02-15] MEDS ORDERED: PROPOFOL INJ 200 MG/20 ML VIAL IV ONE ×2 (10:16→11:16)
[2018-02-15] MEDS ORDERED: EPINEPHRINE INJ/PF 1 MG/1 ML AMPULE ONE (10:49)
[2018-02-15] MEDS ORDERED: EPINEPHRINE INJ 1 MG/10 ML DISP.SYRIN ONE (10:53)
--- NOTE | 2018-02-15 11:58 | Operative Report ---
Nonrecallable Operative Report DATE OF SURGERY: 02/15/18 PREOPERATIVE DIAGNOSIS: Persisting active lower GI I bleed POSTOPERATIVE DIAGNOSIS: Persisting clots throughout the colon; no definitive bleeding source identified. OPERATION: 1. Total colonoscopy to cecum. 2. Extremely challenging modifier SURGEON: CHAS CURRAN ANESTHESIA: LMAC TISSUE REMOVED OR ALTERED: None COMPLICATIONS: None ESTIMATED BLOOD LOSS: Difficult to ascertain INTRAOPERATIVE FINDINGS: See below PROCEDURE: The patient was taken to the preop holding area to the main operating room where LMAC anesthesia was induced. She had blood transfusing, her third unit since hospitalization. She was hemodynamically stable. She was placed in the left lateral decubitus position. Surgical plan surgical timeout conducted. Patient had previously undergone upper and lower endoscopy by Dr. Darren pascual 48 hours ago. The findings are significant for rest blood in the colon, clots, diverticulosis disease, but no confirmed site of bleeding identified. The colonoscopy was limited to the first and left colon due to patient's intolerance to the procedure. Therefore she is brought to the main operating room to undergo the same procedure under LMAC anesthesia. Rectal exam was performed. No obvious external or anal canal pathology. The flexible adult colonoscope was advanced to the anorectal canal all the way to the cecum. This was an extremely difficult operation because of the massive amount of clots, and fresh blood in the colon, rendering scope advancement challenging. Nonetheless with the patient in the left lateral decubitus position, we were able to intubate the cecum, with visualization of the relevant anatomy. The entire colon was everted with fresh blood as well as clots. There was no evidence of tumor, stricture, or polyps. In the cecum we could not see any fresh blood but only clots lining the wall. The scope was withdrawn to the length of the colon checking what the mucosa to identify any focal bleeding source. Again this was very cumbersome due to the extensive volume of clot. There were scattered diverticulosis disease. No active bleeding source identified. Scope was brought out through the patient's anus. She tolerated procedure well she was taken to recovery room stable condition Total time approximately 1 hour.
[2018-02-15] MEDS ORDERED: NORMAL SALINE 1000 ML 1,000 ML IV PRN (12:20)
[2018-02-15] MEDS ORDERED: PROMETHAZINE HCL INJ 25 MG/1 ML VIAL IV PRN (12:54)
[2018-02-15] MEDS ORDERED: DIPHENHYDRAMINE HCL 50 MG/ML VIAL IV PRN (12:54)
[2018-02-15] MEDS ORDERED: OXYCODONE-ACETAMINOPHEN 5-325 MG TABLET PO PRN (12:54)
[2018-02-15] MEDS ORDERED: FENTANYL CITRATE INJ/PF 100 MCG/2 ML AMPUL IV PRN (12:54)
--- NOTE | 2018-02-15 16:52 | PDOC PROGRESS REPORT ---
Subjective Progress Note for:: 02/15/18 Subjective:: Denies abdominal pains. Had episode of BM last night passing clots/blood. No other episode since. Just had colonoscopy by Dr Rawls. Found clots and blood but no active bleeding throughout the colon. Has diverticulosis. No tumor found. Being transfused with the 3rd unit when colonoscopy was being done. Hb decreased to 7.1 this am. She will be getting a 4th unit of blood. Reason For Visit: RECTAL BLEED Physical Exam Vital Signs: Temp Pulse Resp BP Pulse Ox 98.2 F 82 16 120/50 L 100 02/15/18 14:00 02/15/18 14:00 02/15/18 14:00 02/15/18 14:00 02/15/18 14:00 Intake & Output 02/14/18 02/15/18 02/16/18 06:59 06:59 06:59 Intake Total 2750 2000 3300 Output Total 3150 1160 0 Balance -207 256 8580 Weight 130 kg 135 kg Exam: examined before and after colonoscopy. Abdomen remained soft and nontender. Results Laboratory Results: 02/15/18 08:21 02/15/18 05:29 02/15/18 02/15/18 02/15/18 05:29 05:29 08:21 WBC 8.6 8.7 RBC 2.47 L 2.57 L Hgb 7.1 L 7.3 L Hct 21.4 L 22.2 L MCV 87 86 MCH 28.6 28.3 MCHC 33.0 32.8 RDW 16.1 H 15.5 H Plt Count 107 L 115 L Seg Neutrophils % Cancelled Lymphocytes % Cancelled Monocytes % Cancelled Eosinophils % Cancelled Basophils % Cancelled Absolute Neutrophils Cancelled Absolute Lymphocytes Cancelled Absolute Monocytes Cancelled Absolute Eosinophils Cancelled Absolute Basophils Cancelled Sodium 138.9 Potassium 3.5 L Chloride 109 H Carbon Dioxide 28 Anion Gap 2 L BUN 7 Creatinine 0.62 Est GFR ( Amer) > 60 Est GFR (Non-Af Amer) > 60 Glucose 78 Calcium 8.1 L Impressions: Abdomen/Pelvis CT 02/12/18 16:36 IMPRESSION: NO SIGNIFICANT OR ACUTE FINDING IN THE ABDOMEN OR PELVIS ON CT SCAN WITH IV CONTRAST. GI Bleed Scan Nuclear Medicine 02/13/18 00:00 IMPRESSION: NORMAL RADIONUCLIDE GASTROINTESTINAL BLEEDING STUDY. NO EVIDENCE OF ACTIVE GI BLEEDING DURING THE STUDY. Assessment & Plan - Time Time Spent with patient: 15-24 minutes - Plan Summary Plan Summary: If have another bout of obvious bleeding will need a repeat bleeding scan Long talk with the daughter. Claims patient has been taking Aleve for several days. May benefit from platelet transfusion if continues to bleed. Will recheck PT/ INR and if elevated may need FFP. Pt apparently with cardiac problems and needed to watch out for fluid overload.
--- NOTE | 2018-02-15 17:26 | PDOC PROGRESS REPORT ---
Subjective Progress Note for:: 02/15/18 Subjective:: Patient is a 72-year-old morbidly obese female with no past medical history as she does not follow with a primary care physician who was admitted on 02/12/18 for report of melena 3 episodes. The patient is seen on morning rounds with her family members present. She was found resting in bed comfortably on room air. She is looking forward to completing her colonoscopy today as she is very hungry. She was seen again following her colonoscopy to relate that the surgeon did find fresh blood and blood clots but was unable to locate the source of bleeding. She is agreeable to a nuclear med study to assess small bowel. If she requires transfer, she wishes to go to [facility]. She denies dizziness, headache, chest pain, palpitations, dyspnea, orthopnea, abdominal pain, nausea vomiting. She has no other questions or concerns at this time. Reason For Visit: RECTAL BLEED Physical Exam Vital Signs: Temp Pulse Resp BP Pulse Ox 98.2 F 82 16 120/50 L 100 02/15/18 14:00 02/15/18 14:00 02/15/18 14:00 02/15/18 14:00 02/15/18 14:00 Intake & Output 02/14/18 02/15/18 02/16/18 06:59 06:59 06:59 Intake Total 2750 2000 3300 Output Total 3150 1160 0 Balance -310 969 1443 Weight 130 kg 135 kg General appearance: PRESENT: no acute distress, cooperative, morbidly obese, well-developed, well-nourished Head exam: PRESENT: atraumatic, normocephalic Eye exam: PRESENT: conjunctiva pink, EOMI, PERRLA. ABSENT: scleral icterus Ear exam: PRESENT: normal external ear exam Mouth exam: PRESENT: moist, tongue midline Neck exam: ABSENT: carotid bruit, JVD, lymphadenopathy, thyromegaly Respiratory exam: PRESENT: clear to auscultation zaid, decreased breath sounds - Basilar secondary to body habitus, symmetrical, unlabored. ABSENT: rales, rhonchi, wheezes Cardiovascular exam: PRESENT: RRR, +S1, +S2. ABSENT: diastolic murmur, rubs, systolic murmur, tachycardia Pulses: PRESENT: normal dorsalis pedis pul Vascular exam: PRESENT: normal capillary refill GI/Abdominal exam: PRESENT: normal bowel sounds, soft. ABSENT: distended, guarding, mass, organolmegaly, rebound, tenderness Rectal exam: PRESENT: deferred, heme (+) stool Extremities exam: PRESENT: full ROM. ABSENT: calf tenderness, clubbing, pedal edema Neurological exam: PRESENT: alert, awake, oriented to person, oriented to place , oriented to time, oriented to situation, CN II-XII grossly intact. ABSENT: motor sensory deficit Psychiatric exam: PRESENT: appropriate affect, normal mood. ABSENT: homicidal ideation, suicidal ideation Skin exam: PRESENT: dry, intact, warm. ABSENT: cyanosis, rash Results Laboratory Results: 02/15/18 08:21 02/15/18 05:29 02/15/18 02/15/18 02/15/18 05:29 05:29 08:21 WBC 8.6 8.7 RBC 2.47 L 2.57 L Hgb 7.1 L 7.3 L Hct 21.4 L 22.2 L MCV 87 86 MCH 28.6 28.3 MCHC 33.0 32.8 RDW 16.1 H 15.5 H Plt Count 107 L 115 L Seg Neutrophils % Cancelled Lymphocytes % Cancelled Monocytes % Cancelled Eosinophils % Cancelled Basophils % Cancelled Absolute Neutrophils Cancelled Absolute Lymphocytes Cancelled Absolute Monocytes Cancelled Absolute Eosinophils Cancelled Absolute Basophils Cancelled Sodium 138.9 Potassium 3.5 L Chloride 109 H Carbon Dioxide 28 Anion Gap 2 L BUN 7 Creatinine 0.62 Est GFR ( Amer) > 60 Est GFR (Non-Af Amer) > 60 Glucose 78 Calcium 8.1 L Impressions: Abdomen/Pelvis CT 02/12/18 16:36 IMPRESSION: NO SIGNIFICANT OR ACUTE FINDING IN THE ABDOMEN OR PELVIS ON CT SCAN WITH IV CONTRAST. Assessment & Plan - Diagnosis (1) GI bleed Qualifiers: GI bleed type/associated pathology: unspecified gastrointestinal hemorrhage type Qualified Code(s): K92.2 - Gastrointestinal hemorrhage, unspecified Is this a current diagnosis for this admission?: Yes Plan: The patient was admitted with a report of melena 3 after several days of NSAID use for arthritic pain. No previous history of same. Contrasted CT of abdomen and pelvis: No significant or acute findings in the abdomen or pelvis. EGD by Dr. Alva today demonstrated a moderate sized hiatal hernia but otherwise normal duodenum, stomach, and esophagus. Nuclear bleeding scan: no evidence of bleeding. Repeat colonoscopy by Dr. Rawls found fresh blood, clots, diverticulosis without diverticulitis, and no identified source of bleeding. Repeat nuclear bleeding scan is pending. Surgery has been consulted; appreciate their assistance in managing this patient. IV Protonix 40 mg twice daily. Patient was transfused again today, she has received a total of 4 units of packed red blood cells. Will continue to trend Hgb and transfuse as necessary. No aspirin or heparin while actively bleeding; WILLOW russell and SCDs for DVT prophylaxis. (2) Acute blood loss anemia Is this a current diagnosis for this admission?: Yes Plan: Secondary to acute GI bleeding. The patient is not tachycardic and blood pressures are appropriate. The patient is now post 4 units packed red blood cells. Have started gentle IV fluids; will saline at 100 mL/h. We will monitor with serial H&H and transfuse as necessary. PT/INR pending. Consider infusing platelets as recommended by surgery. PLT currently 115. Remaining plan as above. (3) Dehydration Is this a current diagnosis for this admission?: Yes Plan: Resolved. (4) Arthritis Is this a current diagnosis for this admission?: Yes Plan: Avoid all NSAIDs. Tylenol every 4 hours prn pain. Tramadol for break through pain. (5) Generalized weakness Is this a current diagnosis for this admission?: Yes Plan: Multifactorial secondary to acute blood loss anemia, morbid obesity, and immobility. PT/OT have been consulted. Anticipate need for SNF for short-term rehabilitation upon discharge. Appreciate discharge planners assistance. - Time Time Spent with patient: 35 or more minutes Medications reviewed and adjusted accordingly: Yes
--- NOTE | 2018-02-15 17:31 | RADIOLOGY REPORT (SQ) ---
EXAM DESCRIPTION: NM GI BLEED SCAN COMPLETED DATE/TIME: 02/15/2018 5:14 pm REASON FOR STUDY: GI bleed; fresh blood per colonoscopy - no source COMPARISON: 02/13/2018. RADIONUCLIDE AND DOSE: 24.4 millicuries Technetium-labeled red blood cells. The route of agent administration: Intravenous. TECHNIQUE: Serial arterial-phase images acquired for 80 seconds immediately following injection of r adionuclide. Additional 60 images acquired at 60 seconds per image. LIMITATIONS: None. FINDINGS: Flow images without focal areas of abnormal radionuclide location. Serial images show no abnormal accumulation of radionuclide. IMPRESSION: NORMAL RADIONUCLIDE GASTROINTESTINAL BLEEDING STUDY. TECHNICAL DOCUMENTATION: JOB ID: [id number] [employer]- All Rights Reserved Reading location - IP/workstation name: [email or web address]
--- NOTE | 2018-02-15 18:16 | PDOC TRANSFER SUMMARY ---
General Admission Date/PCP: 02/12/18 19:53 Admission Date: 02/12/18 Transfer Date: 02/15/18 Accepting Facility: [facility] Accepting Physician: Dr. Boogie Devine Resuscitation Status: Full Code - Transfer Diagnosis (1) GI bleed Is this a current diagnosis for this admission?: Yes (2) Acute blood loss anemia Is this a current diagnosis for this admission?: Yes (3) Dehydration Is this a current diagnosis for this admission?: Yes (4) Arthritis Is this a current diagnosis for this admission?: Yes (5) Generalized weakness Is this a current diagnosis for this admission?: Yes - Transfer Medications Home Medications: No Home Medications 02/12/18 Transfer Medications: Current Medications Acetaminophen (Tylenol 325 Mg Tablet) 650 mg PO Q4HP PRN PRN Reason: fever, headache or pain Stop: 03/14/18 19:20 Albuterol (Ventolin 0.083% Neb 2.5 Mg/3 Ml Ampul) 2.5 mg NEB RTQ4HP PRN PRN Reason: SHORTNESS OF BREATH Stop: 03/14/18 19:20 Furosemide (Lasix Inj/Pf 20 Mg/2 Ml Sdv) 20 mg IV .AFTER FIRST UNIT PRN PRN Reason: THIS MED IS NOT "PRN" Stop: 02/16/18 08:34 Last Admin: 02/15/18 13:32 Dose: 20 mg Sodium Chloride (Nacl 0.9% 250 Ml Iv Soln) 250 mls @ 0 mls/hr IV CONTINUOUS PRN ; As Directed PRN Reason: AFTER EACH UNIT Stop: 02/16/18 08:34 Sodium Chloride (Nacl 0.9% 1000 Ml Iv Soln) 1,000 mls @ 100 mls/hr IV CONTINUOUS PRN PRN Reason: THIS MED IS NOT "PRN" Stop: 03/14/18 19:20 Influenza Virus Vaccine Quadrival (Fluzone Adlt Quad [id number] Vac 0.5 Ml Syr) 0.5 ml IM .DISCHARGE PRN PRN Reason: THIS MED IS NOT "PRN" Stop: 03/14/18 23:14 Pantoprazole Sodium (Protonix Iv Inj 40 Mg Vial) 40 mg IV Q12 ANIKET Stop: 02/15/18 21:59 Last Admin: 02/15/18 13:29 Dose: Not Given Promethazine HCl (Phenergan Inj 25 Mg/1 Ml Vial) 12.5 mg IV Q4HP PRN PRN Reason: FOR NAUSEA/VOMITING Stop: 03/14/18 19:20 Tramadol HCl (Ultram 50 Mg Tablet) 50 mg PO Q6HP PRN PRN Reason: FOR PAIN Stop: 02/20/18 16:20 - Allergies Allergies/Adverse Reactions: shellfish derived Allergy (Severe, Verified 02/12/18 20:16) Shortness of Breath Hospital Course Hospital Course: Patient is a 72-year-old morbidly obese female with no past medical history since she does not follow with a primary care physician who was admitted on 02/12 with report of melena 3 days. The patient has been taking Aleve regularly for arthritic pain but is not on aspirin therapy or chronic anticoagulation therapy. As part of the initial evaluation, the patient had a contrasted abdominal and pelvic CT which revealed scattered diverticula in the distal descending colon and sigmoid colon but no significant or acute findings. The patient underwent an EGD on 02/13/18 revealing a moderate size hiatal hernia but otherwise normal duodenum, stomach, and esophagus. A colonoscopy was attempted, however, was not completed secondary to an incomplete bowel prep and difficulty achieving adequate patient comfort. A tagged red blood cell study was completed later that afternoon without evidence of active GI bleeding. The patient repeated the bowel prep and underwent a second colonoscopy on 02/15/18. Scattered diverticulosis disease was noted. The colonoscopy was cumbersome secondary to excessive volume of clots and fresh blood noted in the colon. Unfortunately, the source of bleeding was not identified. The tagged red blood cell was repeated and, again, is negative for active bleeding. Over the course of this admission, the patient has required a total of 4 units of packed red blood cells. Her initial hemoglobin of 9.6 decreased to 7.2 with rebound to 9.2 following 2 units. Her hemoglobin then trended downward to 7.1. She received the second 2 units today and posttransfusion hemoglobin is currently pending. Per nursing staff, she does continue to pass blood clots. The patient's heart rate and blood pressure has been stable throughout; she is supported with gentle maintenance IV fluids. She is on Protonix 40 mg IV twice daily. Aside from the continued blood clots per rectum, the patient is asymptomatic. She denies headache, dizziness, chest pain, palpitations, dyspnea , orthopnea. Physical Exam Vital Signs: Temp Pulse Resp BP Pulse Ox 98.2 F 82 16 120/50 L 100 02/15/18 14:00 02/15/18 14:00 02/15/18 14:00 02/15/18 14:00 02/15/18 14:00 Intake & Output 02/14/18 02/15/18 02/16/18 06:59 06:59 06:59 Intake Total 2750 2000 3300 Output Total 3150 1160 0 Balance -340 198 4331 Weight 130 kg 135 kg General appearance: PRESENT: no acute distress, morbidly obese, well-developed, well-nourished Head exam: PRESENT: atraumatic, normocephalic Eye exam: PRESENT: conjunctiva pink, EOMI, PERRLA. ABSENT: scleral icterus Ear exam: PRESENT: normal external ear exam Mouth exam: PRESENT: moist, tongue midline Neck exam: ABSENT: carotid bruit, JVD, lymphadenopathy, thyromegaly Respiratory exam: PRESENT: clear to auscultation zaid, decreased breath sounds, symmetrical, unlabored - Bibasilar. ABSENT: rales, rhonchi, wheezes Cardiovascular exam: PRESENT: RRR. ABSENT: diastolic murmur, rubs, systolic murmur Pulses: PRESENT: normal dorsalis pedis pul Vascular exam: PRESENT: normal capillary refill GI/Abdominal exam: PRESENT: normal bowel sounds, soft. ABSENT: distended, guarding, mass, organolmegaly, rebound, tenderness Rectal exam: PRESENT: deferred Extremities exam: PRESENT: full ROM. ABSENT: calf tenderness, clubbing, pedal edema Neurological exam: PRESENT: alert, awake, oriented to person, oriented to place , oriented to time, oriented to situation, CN II-XII grossly intact. ABSENT: motor sensory deficit Psychiatric exam: PRESENT: appropriate affect, normal mood. ABSENT: homicidal ideation, suicidal ideation Skin exam: PRESENT: dry, intact, warm. ABSENT: cyanosis, rash Results Laboratory Results: 02/15/18 08:21 02/15/18 05:29 02/15/18 02/15/18 02/15/18 05:29 05:29 08:21 WBC 8.6 8.7 RBC 2.47 L 2.57 L Hgb 7.1 L 7.3 L Hct 21.4 L 22.2 L MCV 87 86 MCH 28.6 28.3 MCHC 33.0 32.8 RDW 16.1 H 15.5 H Plt Count 107 L 115 L Seg Neutrophils % Cancelled Lymphocytes % Cancelled Monocytes % Cancelled Eosinophils % Cancelled Basophils % Cancelled Absolute Neutrophils Cancelled Absolute Lymphocytes Cancelled Absolute Monocytes Cancelled Absolute Eosinophils Cancelled Absolute Basophils Cancelled Sodium 138.9 Potassium 3.5 L Chloride 109 H Carbon Dioxide 28 Anion Gap 2 L BUN 7 Creatinine 0.62 Est GFR ( Amer) > 60 Est GFR (Non-Af Amer) > 60 Glucose 78 Calcium 8.1 L Impressions: Abdomen/Pelvis CT 02/12/18 16:36 IMPRESSION: NO SIGNIFICANT OR ACUTE FINDING IN THE ABDOMEN OR PELVIS ON CT SCAN WITH IV CONTRAST. GI Bleed Scan Nuclear Medicine 02/15/18 00:00 IMPRESSION: NORMAL RADIONUCLIDE GASTROINTESTINAL BLEEDING STUDY. Plan Time Spent: Greater than 30 Minutes
[2018-02-15 19:07] LABS: HEMATOCRIT 30.3 % (36.0-47.0); MEAN CORPUSCULAR HEMOGLOBIN 28.1 pg (27.0-33.4); MEAN CORPUSCULAR VOLUME 85 fl (80-97); PLATELET COUNT 116 10^3/uL (150-450); RED BLOOD COUNT 3.55 10^6/uL (3.72-5.28); WHITE BLOOD COUNT 11.8 10^3/uL (4.0-10.5)
[2018-02-15 21:39] VITALS: BP 106/49
== END 2018-02-15 23:05 | disposition short-term general hospital (02) | DRG 378 ==
LOC: ER 13:17 → EH 19:53 → 3S 22:28
PROVIDERS: ADMIT Internal Medicine Geriatric Medicine; ATTEND Internal Medicine Geriatric Medicine
PROC: 0DJ08ZZ Inspection of Upper Intestinal Tract, Via Natural or Artificial Opening Endoscopic (ICD-10-PCS; 2018-02-13)
PROC: 30233N1 Transfusion of Nonautologous Red Blood Cells into Peripheral Vein, Percutaneous Approach (ICD-10-PCS; principal; 2018-02-13 09:30)
PROC: 0DJD8ZZ Inspection of Lower Intestinal Tract, Via Natural or Artificial Opening Endoscopic (ICD-10-PCS; 2018-02-13 09:30)
PROC: 0DJD8ZZ Inspection of Lower Intestinal Tract, Via Natural or Artificial Opening Endoscopic (ICD-10-PCS; 2018-02-15)
DX: K92.1 Melena (principal); Z68.43 Body mass index [BMI] 50.0-59.9, adult; D62 Acute posthemorrhagic anemia; E66.01 Morbid (severe) obesity due to excess calories; D69.6 Thrombocytopenia, unspecified; K57.30 Diverticulosis of large intestine without perforation or abscess without bleeding; K44.9 Diaphragmatic hernia without obstruction or gangrene; E86.0 Dehydration; I10 Essential (primary) hypertension; D53.9 Nutritional anemia, unspecified; I89.0 Lymphedema, not elsewhere classified; R10.30 Lower abdominal pain, unspecified; M19.90 Unspecified osteoarthritis, unspecified site; I83.12 Varicose veins of left lower extremity with inflammation; I83.11 Varicose veins of right lower extremity with inflammation
CPT/HCPCS: 00811; 36415; 36430; 43235; 45378; 74177; 78278; 80048; 80053; 81001; 82962; 83051; 83880; 85025; 85027; 85610; 85730; 86850; 86900; 86901; 86920; 99285; A9560; G8978-GP; G8979-GP; J0171; J1610; J1642; J1940; J2250; J2310; J2405; J2704; J3010; J3480; J3490; J7030; P9016; Q9969; S0164

== ENCOUNTER → 2019-06-06 | Outpatient (CLI) | payer MEDICARE ==
--- NOTE | 2019-06-06 20:17 | XCELERA REPORT ---
[address] [address] Transthoracic Echocardiogram Report Name: BHARAT MATHEW Age: 73 yrs Gender: Female : 1945 Patient Status: Outpatient Patient Location: RAD Study Date: 06/06/2019 01:25 PM Height: 65 in Weight: 300 lb BSA: 2.4 m2 Reason For Study: SOB Ordering Physician: JANAE DUMAS Performed By: Fabiana Isaacs Interpretation Summary Minimal post pericardial effusion. Mild aortic calcium, aortic root not dilated. Mild nonstenotic calcific aortic valvular disease. no AR, normal 3 cusps Mild mitral annuus calcification. No MS, no MVP, mild central MR.. Normal LA size CLEMENTE 26.4. No LVH, IVS/PW was 10/10 mm. normal LVEF 60 % biplane, no LV diastolic dysfunction. Except for inferoseptal hypokinesis, no other segmental wall motion abnormality. NO LV enlargement. RH is normal No Pulm hypertension, RVSP 21, RAP 3. Trace MI. Normal IVC. Unable to explain pt's shortness of breath based on echo findings. MMode/2D Measurements & Calculations RVDd: 3.5 cm LVIDd: 4.4 cm FS: 38.3 % Ao root diam: 2.2 cm IVSd: 1.0 cm LVIDs: 2.7 cm EDV(Teich): Ao root area: LVPWd: 0.98 cm 86.2 ml ESV(Teich): 3.7 cm2 26.9 ml LA dimension: 2.9 cm EF(Teich): 68.8 % LVLd ap4: 8.2 cm SV(MOD-sp4): EDV(MOD-sp4): 72.0 ml 114.0 ml LVLs ap4: 6.4 cm ESV(MOD-sp4): 42.0 ml EF(MOD-sp4): 63.2 % Doppler Measurements & Calculations MV E max lukas: MV P1/2t max lukas: Ao V2 max: LV V1 max P.8 cm/sec 90.3 cm/sec 145.4 cm/sec 4.2 mmHg MV A max lukas: MV P1/2t: 64.0 msec Ao max PG: LV V1 max: 77.5 cm/sec 8.5 mmHg 102.7 cm/sec MV E/A: 1.1 MVA(P1/2t): 3.4 cm2 MV dec slope: 413.7 cm/sec2 MV dec time: 0.22 sec PA V2 max: PI end-d lukas: TR max lukas: MV P1/2t-pr_phl: 69.6 cm/sec 144.4 cm/sec 241.4 cm/sec 64.0 msec PA max PG: TR max P.9 mmHg 23.3 mmHg I WMSI = 1.19 % Normal = 81 Segments Size X - Cannot 1 - Normal 2 - 3 - Akinetic4 - 1-2 small Interpret Hypokinetic Dyskinetic 3-5 moderate 5 - 6-14 large Aneurysmal 15-16 diffuse : JANAE DUMAS > Melvin Martinez
== END ==
LOC: RAD 11:58
PROVIDERS: ATTEND Physician Assistant
DX: R06.02 Shortness of breath (principal)
CPT/HCPCS: 93306

== ENCOUNTER → 2020-07-08 | Outpatient (CLI) | payer MEDICARE, MEDICAID ==
--- NOTE | 2020-07-08 17:03 | XCELERA REPORT ---
[address] [address] Transthoracic Echocardiogram Report Name: BHARAT MATHEW Age: 74 yrs Gender: Female : 1945 Patient Status: Outpatient Patient Location: Study Date: 07/08/2020 09:49 AM Height: 65 in Weight: 320 lb BSA: 2.4 m2 Procedure: A complete two-dimensional transthoracic echocardiogram was performed (2D, M-mode, spectral and color flow Doppler). The study was technically difficult with many images being suboptimal in quality. Reason For Study: SOB Ordering Physician: JACKELINE LNIO Performed By: Victor M Houser Interpretation Summary LEFT VENTRICLE: LV Systolic function: LVEF is felt to be within normal limits. Best estimate is approximately LVEF is 60 to 65%. LV Diastolic Function: Grade II diastolic dysfunction noted. Wall motion: not all wall segment were well visualised. Regional wall motion cannot be accurately commented upon. Left ventricular chamber size: is within normal limit. Left ventricular wall thickness: is increased indicative of Mild LVH. RIGHT VENTRICLE: RV systolic function: cannot accurately estimate RV EF. Right Ventricle Size: mildly dilated. LEFT ATRIUM size: WNL. RIGHT ATRIUM size: mildly dilated. INTER ATRIAL SEPTUM: No definite atrial septal defect noted however a small PFO could be missed. AORTIC ROOT: seems to be within normal limits. ASCENDING AORTA: is not well visualized. INFERIOR VENA CAVA: was not well visualized. VALVES: MITRAL VALVE: Leaflets are mildly thickened. Mobility seems to be within normal limits. Mitral Regurgitation: Trace mitral regurgitation is noted. Mitral Stenosis: No mitral stenosis noted. Mitral valve prolapse: none noted. AORTIC VALVE: all leaflets not well visualised but with mild thickening and adequate excursion. Aortic stenosis: No aortic stenosis noted. Aortic regurgitation: No aortic incompetence noted. TRICUSPID VALVE: mobility and structures within normal limit. Tricuspid stenosis: no tricuspid stenosis noted. Tricuspid regurgitation: Trace tricuspid regurgitation noted. Estimated RVS : cannot be accurately commented upon but possibly at upper limit of normal. PULMONARY VALVE: was not well visualized but no significant abnormalities suspected. Pulmonary stenosis: no pulmonary stenosis noted. Pulmonary regurgitation: no significant pulmonary regurgitation noted. MASSES AND THROMBUS: No definite intracardiac thrombus or masses are noted. PERICARDIUM: No pericardial effusion was noted. IMPRESSION: 1. Normal LVEF. 2. Mild LVH noted. 3. Grade II Diastolic Dysfunction noted. 4. No significant valvular stenosis or regurgitation noted. 5. RA and RV mildly dilated. 6. Echocardiogram was technically difficult therefore clinical correlation is requested. MMode/2D Measurements & Calculations RVDd: 2.4 cm LVIDd: 4.9 cm FS: 37.6 % Ao root diam: 2.7 cm IVSd: 0.97 cm LVIDs: 3.1 cm EDV(Teich): 115.4 ml Ao root area: 5.8 cm2 LVPWd: 0.99 cm ESV(Teich): 37.5 ml LA dimension: 2.6 cm EF(Teich): 67.5 % Doppler Measurements & Calculations MV E max lukas: MV P1/2t max lukas: Ao V2 max: LV V1 max P.5 cm/sec 83.1 cm/sec 146.6 cm/sec 2.9 mmHg MV A max lukas: MV P1/2t: 80.5 msec Ao max PG: LV V1 max: 72.1 cm/sec MVA(P1/2t): 2.7 cm2 8.6 mmHg 85.4 cm/sec MV E/A: 1.0 MV dec slope: 302.2 cm/sec2 MV dec time: 0.23 sec PA V2 max: MV P1/2t-pr_phl: 79.0 cm/sec 80.5 msec PA max P.5 mmHg : JACKELINE LINO Shyamal
== END ==
LOC: SP 08:43
PROVIDERS: ATTEND Family Medicine
DX: R06.02 Shortness of breath (principal)
CPT/HCPCS: 93306

== ENCOUNTER → 2020-07-11 | Outpatient (CLI) | payer MEDICARE, MEDICAID ==
--- NOTE | 2020-07-11 18:43 | RADIOLOGY REPORT (SQ) ---
EXAM DESCRIPTION: CT CHEST WITHOUT IMAGES COMPLETED DATE/TIME: 07/11/2020 9:20 am REASON FOR STUDY: (R06.0)SHORTNESS OF BREATH R06.02 SHORTNESS OF BREATH COMPARISON: None. TECHNIQUE: CT scan performed of the chest without intravenous contrast. Images reviewed with lung, soft tissue and bone windows. Reconstructed coronal and sagittal MPR images reviewed. All images st ored on PACS. All CT scanners at this facility use dose modulation, iterative reconstruction, and/or weight based d osing when appropriate to reduce radiation dose to as low as reasonably achievable (ALARA). [facility]: Dose Right [facility]: CareDose [facility]: Dose Right [facility]: Teradose 4D [facility]: Smart Neuravi RADIATION DOSE: CT Rad equipment meets quality standard of care and radiation dose reduction techniq ues were employed. CTDIvol: 19.5 mGy. DLP: 740 mGy-cm. mGy. LIMITATIONS: Habitus. FINDINGS: LUNGS AND PLEURA: No masses, infiltrates, or pneumothorax. No pleural effusions or pleura l calcifications. HILAR AND MEDIASTINAL STRUCTURES: No identified masses or abnormal nodes. No obvious aneurysm. HEART AND VASCULAR STRUCTURES: No aneurysm. No pericardial effusion. UPPER ABDOMEN: No significant findings. Limited exam. THYROID AND OTHER SOFT TISSUES: No masses. No adenopathy. BONES: No significant finding. HARDWARE: None in the chest. OTHER: No other significant findings. IMPRESSION: NO SIGNIFICANT FINDING ON NON-CONTRASTED CHEST CT. TECHNICAL DOCUMENTATION: JOB ID: [id number] Quality ID # [id number]: Final reports with documentation of one or more dose reduction techniques (e.g., Au tomated exposure control, adjustment of the mA and/or kV according to patient size, use of iterative reconstruction technique) 2010 [employer]- All Rights Reserved Reading location - IP/workstation name: [email or web address]
== END ==
LOC: RAD 08:53
PROVIDERS: ATTEND Family Medicine
DX: R06.02 Shortness of breath (principal)
CPT/HCPCS: 71250